=== PATIENT | male | born 1950 | race Caucasian/White ===

== ENCOUNTER 2020-10-31 07:28 | Day surgery (SDC) | payer BC, MEDICARE, OTHER ==
[~2020-10-31 07:28] MED LIST: Lactated Ringers 1,000 ML IV SCH; Lidocaine 2% 5 ML SDV ONE; Ondansetron 4 MG/2 ML SDV ONE; fentaNYL 100 MCG/2 ML SDV ONE; propofoL 100 ML ONE
[2020-10-31] MEDS ORDERED: Albuterol 0.083% 2.5 MG/3 ML Neb Soln NEB PRN (08:07)
[2020-10-31] MEDS ORDERED: Ondansetron 4 MG/2 ML SDV IVPUSH PRN (08:07)
--- NOTE | 2020-10-31 08:07 | PCM.PREANE ---
Preanesthetic Assessment - Anesthesia/Transfusion/Family Hx Anesthesia History: Prior Anesthesia Without Reaction Transfusion History: Prior Transfusion Without Reaction - Review of Systems General: No Symptoms Pulmonary: No Symptoms Cardiovascular: No Symptoms Gastrointestinal: No Symptoms Neurological: No Symptoms Other: Reports: None - Physical Assessment NPO Status Date: 10/31/20 NPO Status Time: 00:00 Vital Signs: Last Vital Signs Temp 97.5 F 10/31/20 07:37 Pulse 57 L 10/31/20 07:37 Resp 15 10/31/20 07:37 BP 155/94 H 10/31/20 07:37 Pulse Ox 97 10/31/20 07:37 Height: 6 ft 3 in Weight: 223 lb ASA Class: 2 Mental Status: Alert & Oriented x3 Dentition: Reports: Normal Dentition ROM/Head Extension: Full Lungs: Clear to Auscultation, Normal Respiratory Effort Cardiovascular: Regular Rate, Regular Rhythm - Allergies Allergies/Adverse Reactions: Allergies Allergy/AdvReac Type Severity Reaction Status Date / Time adhesive tape Allergy Rash Verified 10/25/20 11:58 - Acknowledgements Anesthesia Type Planned: General Anesthesia Pt an Appropriate Candidate for the Planned Anesthesia: Yes Alternatives and Risks of Anesthesia Discussed w Pt/Guardian: Yes Pt/Guardian Understands and Agrees with Anesthesia Plan: Yes PreAnesthesia Questionnaire HEENT History: Reports: Cataract, Other (See Below) Other HEENT History: uses reading glasses Cardiovascular History: Reports: Hypertension Respiratory History: Reports: Other (See Below) Other Respiratory History: his says he snores Gastrointestinal History: Reports: Other (See Below) Other Gastrointestinal History: some heartburn- take OTC Pepsid PRN Genitourinary History: Reports: Prostate Disorder Other Genitourinary History: hx of prostate cancer Musculoskeletal History: Reports: None Neurological History: Reports: None Psychiatric History: Reports: None Endocrine/Metabolic History: Reports: None Hematologic History: Reports: Blood Transfusion(s) Other Hematologic History: states had blood transfusion with prostatectomy Immunologic History: Reports: None Oncologic (Cancer) History: Reports: Prostate Dermatologic History: Reports: None - Past Surgical History Head Surgeries/Procedures: Reports: None HEENT Surgical History: Reports: Cataract Surgery Cardiovascular Surgical History: Reports: None Respiratory Surgical History: Reports: None GI Surgical History: Reports: Appendectomy, Colonoscopy, Other (See Below) Other GI Surgeries/Procedures: hx of Esophageal dilitation Male Surgical History: Reports: Prostatectomy Other Male Surgeries/Procedures: hx radical prostatectomy for cancer Endocrine Surgical History: Reports: None Neurological Surgical History: Reports: None Musculoskeletal Surgical History: Reports: Other (See Below) Other Musculoskeletal Surgeries/Procedures:: Repair of Ruptured Achilles Tendon- left leg Oncologic Surgical History: Reports: Other (See Below) Other Oncologic Surgeries/Procedures: Radical Prostatectomy - SUBSTANCE USE Tobacco Use Status *Q: Never Tobacco User Recreational Drug Use History: No - HOME MEDS Home Medications: Home Meds Benazepril HCl [Lotensin] 20 mg PO QAM 06/18/15 [History] amLODIPine Besylate [Amlodipine Besylate] 10 mg PO QAM 06/18/15 [History] Famotidine [Pepcid AC] 20 mg PO DAILY PRN 10/25/20 [History] - CURRENT (IN HOUSE) MEDS Current Meds: Current Medications Lactated Ringer's (Ringers, Lactated) 1,000 mls @ 125 mls/hr IV ASDIRECTED REGULO Last Admin: 10/31/20 07:47 Dose: 125 mls/hr Documented by: Discontinued Medications Fentanyl (Fentanyl 100 Mcg/2 Ml Sdv) Confirm Administered Dose 100 mcg .ROUTE .STK-MED ONE Stop: 10/31/20 07:17 Propofol (Diprivan 100 Ml) Confirm Administered Dose 100 mls @ as directed .ROUTE .STK-MED ONE Stop: 10/31/20 07:14 Lidocaine (Lidocaine 2% 5 Ml Sdv) Confirm Administered Dose 5 ml .ROUTE .STK-MED ONE Stop: 10/31/20 07:17 Ondansetron HCl (Ondansetron 4 Mg/2 Ml Sdv) Confirm Administered Dose 4 mg .ROUTE .STK-MED ONE Stop: 10/31/20 07:17
--- NOTE | 2020-10-31 09:00 | PCM.POSTAN ---
POST ANESTHESIA ASSESSMENT - MENTAL STATUS Mental Status: Alert, Oriented - VITAL SIGNS Vital Signs: Last Vital Signs Temp 97.5 F 10/31/20 07:37 Pulse 53 L 10/31/20 08:51 Resp 10 L 10/31/20 08:51 BP 111/72 10/31/20 08:51 Pulse Ox 95 10/31/20 08:51 - RESPIRATORY Respiratory Status: Respiratory Rate WNL, Airway Patent, O2 Saturation Stable - CARDIOVASCULAR CV Status: Pulse Rate WNL, Blood Pressure Stable - GASTROINTESTINAL GI Status: No Symptoms - POST OP HYDRATION Hydration Status: Adequate & Stable
--- NOTE | 2020-10-31 09:01 | PCM48HPAN ---
Post Anesthesia Note - EVALUATION WITHIN 48HRS OF ANESTHETIC Vital Signs in Normal Range: Yes Patient Participated in Evaluation: Yes Respiratory Function Stable: Yes Airway Patent: Yes Cardiovascular Function Stable: Yes Hydration Status Stable: Yes Pain Control Satisfactory: Yes Nausea and Vomiting Control Satisfactory: Yes Mental Status Recovered: Yes Vital Signs: Last Vital Signs Temp 97.5 F 10/31/20 07:37 Pulse 53 L 10/31/20 08:51 Resp 10 L 10/31/20 08:51 BP 111/72 10/31/20 08:51 Pulse Ox 95 10/31/20 08:51
--- NOTE | 2020-10-31 09:05 | PCM.OPNOTE ---
- General Post-Op/Procedure Note Date of Surgery/Procedure: 10/31/20 Operative Procedure(s): egd w bx. colonoscopy w random bx Findings: see [id number] Pre Op Diagnosis: abd pain, dysphagia and +ve fam hx Post-Op Diagnosis: Same Anesthesia Technique: Moderate Sedation Primary Surgeon: Adan Friend Pathology: egd bx random colon bx Complications: None Condition: Good Free Text/Narrative:: Intake & Output 10/30/20 10/31/20 10/31/20 22:59 06:59 14:59 Intake Total 900 Balance 900
[2020-10-31 09:06] VITALS: BP 126/71; PULSE 50
--- NOTE | 2020-10-31 16:02 | OR ---
SURGEON: Adan Friend MD DATE OF PROCEDURE: 10/31/2020 PREOPERATIVE DIAGNOSES: 1. Dysphagia, positive family history. 2. Abdominal pain. POSTOPERATIVE DIAGNOSES: 1. Dysphagia, positive family history. 2. Abdominal pain. PROCEDURES PERFORMED: 1. Esophagogastroduodenoscopy with biopsy. 2. Colonoscopy with biopsy. DESCRIPTION OF PROCEDURE: EGD: The patient was taken to the endoscopy room, and with the FRUIT CULLER, Diprivan was administered. A well-lubricated EGD scope was gently inserted through the oropharynx, down the esophagus, passing through the gastroesophageal junction, into the stomach. The mucosa was examined upon the passage. Any etiology will be noted. Once in the stomach, we continued to advance to the distal antrum, passed through the pylorus into the second portion of the duodenum. Again, the mucosa was examined for any abnormality and etiology. The scope was then retrieved back to the stomach and then retroflexed to look at the fundus of the stomach. If a biopsy was indicated, we will biopsy the antrum, body, and gastroesophageal junction. The air will be sucked out while the scope is retrieved to reduce the patient's discomfort. The patient tolerated the procedure well. There were no intraoperative complications. Dr. Friend was present through the whole procedure. Prior to surgery, a time-out had been called, the patient identified, procedure identified and antibiotic administered. Colonoscopy with biopsy: The patient was taken to the endoscopy room. A time out was called, patient identified, and procedure identified. Diprivan was then administrated. Patient went from awake to sleep, hearing doctor talking or door closing is normal. Perineum inspection and digital examination were then performed. A well-lubricated colonoscope was gently inserted through the rectum, advanced past the rectosigmoid junction, the descending colon, splenic flexure, transverse colon, hepatic flexure, ascending colon, arrived to the cecum. Cecum was identified as dictated in the finding. Then the scope was carefully withdrawn while attention was paid to the mucosal surface for any abnormality. Air will be sucked out during the scope withdrawal. At the rectum, retroflexed to examine any rectal diseases, fistula or hemorrhoids. During mucosal examination, abnormality or polyp was noted; picture taken and biopsy performed. Patient tolerated procedure well. There were no intraoperative complications, and Dr. Friend was present throughout the whole procedure. FINDINGS: EGD findings: 1. The patient is easily sedated with FRUIT CULLER and Diprivan. The patient is soundly snoring. 2. Oropharynx and proximal esophagus are free of disease, stricture, or inflammation. The whole esophagus does not see any stricture at all. Distal esophagus has GE junction at 40 shows mild salmon-colored change, suggests acid reflux. Stomach rugae are normal in appearance. Antrum looks fine. Duodenum looks grossly normal. On retroflexed look at the fundus of stomach, the patient has a mild hiatal hernia, very mild. Biopsy done at antrum, body, GE junction at 40, and sucked out the gas while scope pulling out. During the whole study, there is no food, bile, or blood observed. Colonoscopy findings: 1. The patient is easily sedated with FRUIT CULLER and Diprivan. The patient is soundly snoring. 2. Bowel prep is normal to above average. Very little liquid stool. 3. Colon is rather straightforward and cecum indicated by ileocecal fold, one- to-one indentation, appendiceal orifice, and ScopeGuide is pointing south. Mucosa examined upon scope pulling out. The patient does not have diverticulosis, polyp, mass, growth, inflammation, stricture, AV malformation, bleeding; none of those. Random biopsy was done for abdominal pain. The patient has mild internal hemorrhoids and mild external hemorrhoids. The patient would benefit from repeat colonoscopy in three years from today because of the positive family history. GINGER / TERA /[id number]
== END 2020-10-31 09:15 | disposition home or self-care (01) ==
LOC: MW.SDS 07:28
PROVIDERS: ATTEND Surgery
DX: K64.8 Other hemorrhoids (principal); K44.9 Diaphragmatic hernia without obstruction or gangrene; K64.4 Residual hemorrhoidal skin tags; K29.50 Unspecified chronic gastritis without bleeding; K20.90 Esophagitis, unspecified without bleeding; I10 Essential (primary) hypertension; Z79.899 Other long term (current) drug therapy; Z98.890 Other specified postprocedural states; Z90.49 Acquired absence of other specified parts of digestive tract; Z91.048 Other nonmedicinal substance allergy status
CPT/HCPCS: 43239; 45380; J2704; J3010; J7120; 00812; 99100; J2405